=== PATIENT | female | born 1995 ===

== ENCOUNTER 2017-12-15 14:41 | Emergency (ER) ==
--- NOTE | 2017-12-16 15:23 | UC ---
- Progress Note Progress Note: NO X-RAYS ORDERED Discharge - Sign-Out/Discharge Documenting (check all that apply): Patient Departure All imaging exams completed and their final reports reviewed: No Studies - Discharge Plan Condition: Stable Disposition: LEFT WITHOUT BEING SEEN Referrals: No Primary Care Phys,NOPCP [Primary Care Provider] - - Billing Disposition and Condition Condition: STABLE Disposition: Left Without Being Seen
== END 2017-12-15 15:04 | disposition left against medical advice (07) ==
LOC: UCCORT 14:41
DX: R07.0 Pain in throat (principal); Z53.21 Procedure and treatment not carried out due to patient leaving prior to being seen by health care provider